=== PATIENT | female | born 1960 | race Caucasian/White ===

== ENCOUNTER → 2020-04-11 12:28 | Outpatient (CLI) | payer BC, SELFPAY ==
--- NOTE | 2020-04-11 12:29 | DI.MG.S_ITS ---
BILATERAL DIGITAL SCREENING MAMMOGRAM 3D/2D WITH CAD: 04/11/2020 CLINICAL: Routine screening. Family history of breast cancer. Comparison is made to exams dated: 09/22/2018 mammogram, 07/01/2017 mammogram, and 06/16/2016 mammogram - [facility]. The tissue of both breasts is heterogeneously dense. This may lower the sensitivity of mammography. Current study was also evaluated with a Computer Aided Detection (CAD) system. There is a 0.4 cm oval focal asymmetry in the left breast at 6 o'clock middle depth. This is more prominent. No other significant masses, calcifications, or other findings are seen in either breast. IMPRESSION: INCOMPLETE: NEEDS ADDITIONAL IMAGING EVALUATION The 0.4 cm oval focal asymmetry in the left breast resembles a cyst or a lymph node and is indeterminate. Additional views with possible ultrasound are recommended. This exam was interpreted at Station ID: [id number]. NOTE: For mammograms, a report in lay terms will be sent to the patient. Approximately 15% of breast malignancies will not be visualized mammographically. In the management of a palpable breast mass, a negative mammogram must not discourage biopsy of a clinically suspicious lesion. Electronically Signed By: Austen cabrera/mo:04/11/2020 17:12:33 letter sent: Additional Imaging Needed ACR BI-RADS Category 0: Incomplete [id number]
== END ==
PROVIDERS: PCP Registered Nurse Diabetes Educator; Referring Provider Registered Nurse Diabetes Educator; Visit Provider Registered Nurse Diabetes Educator
DX: Z12.31 Encounter for screening mammogram for malignant neoplasm of breast (principal); Z80.3 Family history of malignant neoplasm of breast; M81.0 Age-related osteoporosis without current pathological fracture; Z78.0 Asymptomatic menopausal state; Z82.62 Family history of osteoporosis
CPT/HCPCS: 77063; 77067; 77080

== ENCOUNTER → 2020-05-10 08:00 | Outpatient (CLI) | payer BC, SELFPAY ==
[2020-05-10 08:57] LABS: Add Manual Diff / Slide Review NO; Basophils Absolute Auto 0 /uL (0-100); Basophils Percent Auto 0.9 % (0-2); Eosinophils Absolute Auto 100 /uL (0-450); Eosinophils Percent Auto 1.6 % (2-4); Hematocrit 39.5 % (36-46); Hemoglobin 13.4 g/dL (12.0-16.0); Lymphocytes Absolute Auto 1600 /uL (1100-4500); Lymphocytes Percent Auto 30.6 % (25-40); Mean Corpuscular HGB Conc 33.8 % (30-36); Mean Corpuscular Volume 91.7 fL (80-100); Monocytes Absolute Auto 300 /uL (0-900); Monocytes Percent Auto 5.2 % (3-14); Neutrophils Absolute Auto 3200 /uL (1500-7000); Neutrophils Percent Auto 61.7 % (50-75); Platelet Count 238 X10^3/uL (150-400); Red Cell Distribution Width 12.7 % (11.6-14.8); White Blood Cell Count 5.1 X10^3/uL (4.5-11.0)
[2020-05-10 09:14] LABS: Alanine Aminotransferase 23 IU/L (<35); Albumin 4.5 g/dL (3.5-5.0); Albumin Globulin Ratio 1.3 (1.0-2.8); Alkaline Phosphatase 76 U/L (38-126); Aspartate Aminotransferase 29 IU/L (14-36); BUN Creatinine Ratio 19.2 (6-22); Bilirubin Total 0.7 mg/dL (0.2-1.3); Blood Urea Nitrogen 15 mg/dL (7-17); Calcium 9.4 mg/dL (8.4-10.2); Carbon Dioxide 28 mmol/L (22-32); Chloride 101 mmol/L (98-107); Cholesterol 165 mg/dL (140-199); Estimated Glomerular Filt Rate > 60.0 mL/min (>60); Globulin 3.6 g/dL (1.7-4.1); Glucose 97 mg/dL (80-110); HDL Cholesterol 38 mg/dL (40-60); HEMOLYSIS < 15 (0-50); LDL Cholesterol Calculated 109 mg/dL (<100); Potassium 4.4 mmol/L (3.4-5.1); Sodium 136 mmol/L (137-145); Total Protein 8.1 g/dL (6.3-8.2); Triglycerides 92 mg/dL (35-150)
[2020-05-10 09:46] LABS: TSH w/ Reflex to FT4 2.02 uIU/mL (0.47-4.68)
[2020-05-12 14:40] LABS: Vitamin D 25 Hydroxy (D3) 38.9 ng/mL (30.0-100.0)
[2020-05-12 23:07] LABS: QuantiFERON Mitogen Value >10.00 IU/mL (.); QuantiFERON Nil Value 0.06 IU/mL (.); QuantiFERON TB Gold Plus Negative (Negative); QuantiFERON TB1 Ag Value 0.08 IU/mL (.); QuantiFERON TB2 Ag Value 0.05 IU/mL (.)
== END ==
PROVIDERS: PCP Registered Nurse Diabetes Educator; Referring Provider Registered Nurse Diabetes Educator; Visit Provider Registered Nurse Diabetes Educator
DX: E04.2 Nontoxic multinodular goiter (principal); Z11.1 Encounter for screening for respiratory tuberculosis; Z13.0 Encounter for screening for diseases of the blood and blood-forming organs and certain disorders involving the immune mechanism; Z13.1 Encounter for screening for diabetes mellitus; Z13.220 Encounter for screening for lipoid disorders; M81.0 Age-related osteoporosis without current pathological fracture
CPT/HCPCS: 36415; 80053; 80061; 82306; 84443; 85025; 86480

== ENCOUNTER → 2020-05-12 12:45 | Outpatient (CLI) | payer BC, SELFPAY ==
--- NOTE | 2020-05-12 12:46 | DI.MG.S_ITS ---
UNILATERAL LEFT DIGITAL DIAGNOSTIC MAMMOGRAM 3D/2D WITH ADDITIONAL VIEWS: 05/12/2020 CLINICAL: Additional evaluation requested from prior study. Comparison is made to exams dated: 04/11/2020 mammogram - [facility], 09/22/2018 mammogram, 07/01/2017 mammogram, and 06/16/2016 mammogram - [facility]. The tissue of left breast is heterogeneously dense. This may lower the sensitivity of mammography. There is a 0.4 cm oval mass with a circumscribed margin in the left breast at 5 o'clock middle depth. This is seen in additional views. No other significant masses or calcifications are seen in the breast. IMPRESSION: INCOMPLETE: NEEDS ADDITIONAL IMAGING EVALUATION The 0.4 cm oval mass in the left breast is indeterminate. An ultrasound is recommended. This exam was interpreted at Station ID: [id number]. NOTE: For mammograms, a report in lay terms will be sent to the patient. Approximately 15% of breast malignancies will not be visualized mammographically. In the management of a palpable breast mass, a negative mammogram must not discourage biopsy of a clinically suspicious lesion. SUMMARY: Targeted ultrasound is recommended for further evaluation and will be scheduled immediately following this exam. Electronically Signed By: Aryan hawk/mo:05/12/2020 14:37:05 ACR BI-RADS Category 0: Incomplete [id number]
--- NOTE | 2020-05-12 12:46 | DI.US.S_ITS ---
LIMITED ULTRASOUND OF LEFT BREAST: 05/12/2020 CLINICAL: Patient returns today to evaluate a focal asymmetry in the left breast. Comparison is made to exams dated: 05/12/2020 mammogram, 04/11/2020 mammogram - [facility], 09/22/2018 mammogram, 06/16/2016 mammogram, and 07/01/2017 mammogram - [facility]. Color flow ultrasound of the left breast 5-6 o'clock region was performed. Barnes scale images of the real-time examination were reviewed. There is a benign 0.4 cm x 0.4 cm x 0.3 cm intramammary lymph node in the left breast at 5 o'clock anterior depth 4 cm from the nipple. This intramammary lymph node displays fatty hilum. IMPRESSION: BENIGN There is no sonographic evidence of malignancy. The 0.4 cm x 0.4 cm x 0.3 cm intramammary lymph node in the left breast is benign. A 1 year screening mammogram is recommended. This exam was interpreted at Station ID: [id number]. Electronically Signed By: Aryan hawk/mo:05/12/2020 14:38:52 letter sent: Normal Exam Ultrasound BI-RADS: 2 Benign
== END ==
PROVIDERS: PCP Registered Nurse Diabetes Educator; Referring Provider Registered Nurse Diabetes Educator; Visit Provider Registered Nurse Diabetes Educator
DX: R92.8 Other abnormal and inconclusive findings on diagnostic imaging of breast (principal)
CPT/HCPCS: 76642; 77065; G0279

== ENCOUNTER → 2020-12-30 16:30 | Outpatient (CLI) | payer BC, SELFPAY ==
--- NOTE | 2020-12-30 16:31 | DI.RAD.S_ITS ---
PROCEDURE: XR LUMBAR SPINE 2-3V INDICATIONS: eval treat focal pain and TTP at L4 x 4 months. No trauma. TECHNIQUE: 3 views of the lumbar spine were acquired. COMPARISON: None. FINDINGS: Bones: 5 [id number] vertebrae are present. There is trace retrolisthesis of L5 on S1. Severe disc space narrowing and moderate foraminal narrowing is present at L5-S1. Scattered non bridging anterior osteophytes are present throughout the lumbar spine. No vertebral body compression fractures. No suspicious bony lesions. Soft tissues: Overlying bowel gas pattern is normal. No suspicious soft tissue calcifications. IMPRESSION: Degenerative changes most notable at L5-S1. Dictated by: Michelle Ortiz M.D. on 12/30/2020 at 16:59 Approved by: Michelle Ortiz M.D. on 12/30/2020 at 16:59
== END ==
PROVIDERS: PCP Registered Nurse Diabetes Educator; Referring Provider Registered Nurse Diabetes Educator; Visit Provider Registered Nurse Diabetes Educator
DX: M51.37 Other intervertebral disc degeneration, lumbosacral region (principal)
CPT/HCPCS: 72100

== ENCOUNTER → 2021-01-08 18:30 | Outpatient (CLI) | payer BC, SELFPAY ==
--- NOTE | 2021-01-08 18:31 | DI.MRI.S_ITS ---
PROCEDURE: MR LUMBAR SPINE WO CON INDICATIONS: eval focal TTP/pain at L4 x 4 months, refractory TECHNIQUE: Noncontrast sagittal T1 spin echo and T2 fast echo, sagittal STIR, axial T1 and T2 fast spin echo through the lumbar spine. In cases with scoliosis, additional coronal T2 fast spin echo may be performed. COMPARISON: None. FINDINGS: Image quality: Excellent. Alignment and Curvature: There is normal bony alignment. Bone Marrow: Marrow is of normal overall signal. No acute vertebral body compression fractures. Spinal Cord: Conus medullaris terminates at the L1 level. Visualized cord demonstrates normal signal and size. Paraspinous Soft Tissues: No paravertebral masses. T12-L1: Normal appearance. L1-L2: Normal appearance. L2-L3: Normal appearance. L3-L4: Normal appearance. L4-L5: Mild disc height loss present with circumferential disc bulge. High-intensity zone posterior annulus reflects annular fissure or tear. Mild central stenosis present. Mild hypertrophic facet joints present without foraminal stenosis. L5-S1: Moderate disc height loss and endplate sclerosis present associated with circumferential disc bulge resulting in mild central stenosis and the face mint of the left lateral recess. Moderate bilateral foraminal stenosis present. IMPRESSION: Mild multilevel degenerative disc disease and arthropathy results in mild central and moderate bilateral foraminal stenosis at L5-S1 Dictated by: Damion Barragan M.D. on 01/09/2021 at 11:57 Approved by: Damion Barragan M.D. on 01/09/2021 at 12:04
== END ==
PROVIDERS: PCP Registered Nurse Diabetes Educator; Referring Provider Registered Nurse Diabetes Educator; Visit Provider Registered Nurse Diabetes Educator
DX: M54.5 Low back pain (principal); M51.36 Other intervertebral disc degeneration, lumbar region; M51.37 Other intervertebral disc degeneration, lumbosacral region; M47.816 Spondylosis without myelopathy or radiculopathy, lumbar region; M47.817 Spondylosis without myelopathy or radiculopathy, lumbosacral region; M48.061 Spinal stenosis, lumbar region without neurogenic claudication; M48.07 Spinal stenosis, lumbosacral region
CPT/HCPCS: 72148

== ENCOUNTER → 2021-06-27 08:03 | Outpatient (CLI) | payer BC, SELFPAY ==
[2021-06-27 09:22] LABS: Add Manual Diff / Slide Review NO; Basophils Absolute Auto 0 /uL (0-100); Basophils Percent Auto 0.7 % (0-2); Eosinophils Absolute Auto 100 /uL (0-450); Eosinophils Percent Auto 0.9 % (2-4); Hematocrit 38.8 % (36-46); Hemoglobin 13.4 g/dL (12.0-16.0); Lymphocytes Absolute Auto 1400 /uL (1100-4500); Lymphocytes Percent Auto 23.6 % (25-40); Mean Corpuscular HGB Conc 34.6 % (30-36); Mean Corpuscular Hemoglobin 31.5 PG (26-34); Monocytes Absolute Auto 300 /uL (0-900); Monocytes Percent Auto 5.6 % (3-14); Neutrophils Absolute Auto 4100 /uL (1500-7000); Neutrophils Percent Auto 69.2 % (50-75); Platelet Count 247 X10^3/uL (150-400); Red Blood Cell Count 4.26 X10^6/uL (4.0-5.2); Red Cell Distribution Width 12.6 % (11.6-14.8); White Blood Cell Count 5.9 X10^3/uL (4.5-11.0)
[2021-06-27 09:59] LABS: Alanine Aminotransferase 26 IU/L (<35); Albumin 4.5 g/dL (3.5-5.0); Albumin Globulin Ratio 1.4 (1.0-2.8); Alkaline Phosphatase 68 U/L (38-126); Aspartate Aminotransferase 30 IU/L (14-36); BUN Creatinine Ratio 13.6 (6-22); Bilirubin Total 1.1 mg/dL (0.2-1.3); Blood Urea Nitrogen 11 mg/dL (7-17); Calcium 9.7 mg/dL (8.4-10.2); Carbon Dioxide 26 mmol/L (22-32); Chloride 100 mmol/L (98-107); Cholesterol 204 mg/dL (140-199); Estimated Glomerular Filt Rate > 60.0 mL/min (>60); Globulin 3.3 g/dL (1.7-4.1); Glucose 99 mg/dL (80-110); HDL Cholesterol 45 mg/dL (40-60); HEMOLYSIS < 15 (0-50); LDL Cholesterol Calculated 142 mg/dL (<100); Potassium 4.6 mmol/L (3.4-5.1); Sodium 135 mmol/L (137-145); Total Protein 7.8 g/dL (6.3-8.2); Triglycerides 85 mg/dL (35-150)
[2021-06-27 10:28] LABS: TSH w/ Reflex to FT4 1.55 uIU/mL (0.47-4.68)
[2021-07-01 17:07] LABS: QuantiFERON Mitogen Value >10.00 IU/mL (.); QuantiFERON TB Gold Plus Negative (Negative); QuantiFERON TB1 Ag Value 0.01 IU/mL (.)
== END ==
PROVIDERS: PCP Family Medicine; Referring Provider Family Medicine; Visit Provider Family Medicine
DX: Z00.00 Encounter for general adult medical examination without abnormal findings (principal)
CPT/HCPCS: 36415; 80053; 80061; 84443; 85025; 86480

== ENCOUNTER → 2021-07-03 15:08 | Outpatient (CLI) | payer BC, SELFPAY ==
--- NOTE | 2021-07-03 15:09 | DI.MG.S_ITS ---
BILATERAL DIGITAL SCREENING MAMMOGRAM 3D/2D WITH CAD: 07/03/2021 CLINICAL: Routine screening. Family history of breast cancer. Comparison is made to exams dated: 05/12/2020 mammogram, 04/11/2020 mammogram - [facility], and 09/22/2018 mammogram - [facility]. The tissue of both breasts is heterogeneously dense. This may lower the sensitivity of mammography. Current study was also evaluated with a Computer Aided Detection (CAD) system. No significant masses, calcifications, or other findings are seen in either breast. There has been no significant interval change. IMPRESSION: NEGATIVE There is no mammographic evidence of malignancy. A 1 year screening mammogram is recommended. This exam was interpreted at Station ID: [id number]. NOTE: For mammograms, a report in lay terms will be sent to the patient. Approximately 15% of breast malignancies will not be visualized mammographically. In the management of a palpable breast mass, a negative mammogram must not discourage biopsy of a clinically suspicious lesion. Electronically Signed By: Austen cabrera/mo:07/03/2021 16:37:16 letter sent: Normal Exam ACR BI-RADS Category 1: Negative [id number]
== END ==
PROVIDERS: PCP Family Medicine; Referring Provider Family Medicine; Visit Provider Family Medicine
DX: Z12.31 Encounter for screening mammogram for malignant neoplasm of breast (principal); Z80.3 Family history of malignant neoplasm of breast
CPT/HCPCS: 77063; 77067

== ENCOUNTER → 2021-10-14 10:06 | Outpatient (CLI) | payer BC, SELFPAY ==
[2021-10-14 11:49] LABS: COVID19 -Nasal RAPID Negative (Negative)
== END ==
PROVIDERS: PCP Family Medicine; Visit Provider Nurse Practitioner Family
DX: Z20.822 Contact with and (suspected) exposure to COVID-19 (principal)
CPT/HCPCS: 87635; C9803

== ENCOUNTER 2021-10-16 13:06 | Day surgery (SDC) | payer BC, SELFPAY ==
[2021-10-16] VITALS (7 sets, daily range): BP systolic 99–115; BP diastolic 56–75; PULSE 40–66; RESP 11–18; TEMP 35.7–36.7; O2SAT 92–100; BMI 22.8
--- NOTE | 2021-10-16 12:25 | P.HP_ITS ---
History of Present Illness History of Present Illness Chief complaint: SCREENING COLONOSCOPY Narrative: 61 Years Old Female seen today for consideration of a screening colonoscopy. Has had 3 lifetime colonoscopies. Last coloonscopy in 2016, had a few polyps, 5 year recall. There have been no lower GI symptoms suggesting disease such as change in bowel habits, bleeding, abdominal pain or anemia. There's been no family history of colon cancer or colon polyps. Overall health issues have been stable, including no major cardiac events for at least 6 weeks. Past Medical History: Reactive airway disease: Multiple thyroid nodules: Osteoporosis: colon polyps Past Surgical History: Appendectomy Tonsillectomy ORIF's-Multiple Colonoscopy x 3 Family History: Reviewed history from 06/09/2021 and no changes required: Father: - A. Fib, Dementia, HTN, Heart disease Mother: BRCA, Heart Disease, Stroke, HTN, Hyperlipidemia, Osteoporosis Social History: Reviewed history from 06/09/2021 and no changes required: Marital Status: Children: none Occupation: [employer] Household Members: Spouse Education: [employer] Patient History Medical History Allergies Asthma Chicken pox Dyslipidemia Fractures Hearing loss Measles Multinodular thyroid Osteoporosis Otitis media, serous, TM rupture Family & Social History Social History: other hiking, kayaking, gardening Tobacco & Substance use: Smoking Status Never smoker alcohol intake current Meds Home Medications and Allergies Home Medications Medication Instructions Recorded Confirmed Type fluticasone propionate 50 1 spray NASAL DAILY 02/25/20 10/16/21 History mcg/actuation nasal spray,suspension hydrocortisone 2.5 % topical cream 1 applictn TN QD-BID PRN 02/25/20 10/16/21 History with perineal applicator (Proctosol HC) loratadine 10 mg tablet (Allergy 10 mg PO DAILY 02/25/20 10/16/21 History Relief (loratadine)) risedronate 150 mg tablet 150 mg PO QMONTH #3 tab 05/28/20 10/16/21 Rx Allergies Allergy/AdvReac Type Severity Reaction Status Date / Time No Known Drug Allergies Allergy Verified 10/16/21 13:22 Review of Systems Review of Systems Narrative: All remaining ROS were reviewed and negative except as addressed. Exam Narrative Exam Narrative: GENERAL: Alert and oriented, appearing stated age and in no acute distress. HEENT: Head normocephalic/atraumatic. Extraocular movements intact. LUNGS: Clear to ausculation bilaterally, no wheezes, rhonchi or rales. CV: Normal S1 and S2 with regular rate and rhythm, no audible murmurs, rubs or gallops. ABDOMEN: Soft, non-tender, non-distended, no organomegaly. Positive bowel sounds. EXTREMITIES: No clubbing, cyanosis, or edema. NEURO: Cranial nerves II through XII grossly intact, no focal deficits. PSYCH: Alert and oriented x 3. SKIN: No concerning lesions. Assessment & Plan Assessment & Plan narrative: 1. History of colon polyps 2. Screening for colon cancer Plan for colonoscopy. The nature and character of the procedure as well as anticipated results were discussed. The possibility of not completing the procedure was also discussed. Possible complications including aspiration pneumonia, bleeding, perforation and reaction to medications either for sedation or preparation and missed lesions were discussed. Questions were answered and proceeding to the colonoscopy was elected. Informed consent signed. I sincerely appreciate the referral allowing me to participate in this patient's care. Please contact me with any questions or concerns.
--- NOTE | 2021-10-16 12:27 | PM.OP.COLON ---
Operative Date/Time/Diagnoses Date of procedure: 10/16/21 Procedure Notes SCOAP/Timeout: 2:48 p.m. Procedure in detail: ENDOSCOPIST: Kelsie Leon MD Sedation RN: Reshma Montgomery RN Sedation start time: 2:49 p.m. Sedation end time: 3:09 p.m. PROCEDURE: Colonoscopy INDICATIONS: 1. History of colon polyps 2. Screening for colon cancer MEDICATION: Levsin 0.125 mg sublingual, incremental doses of Versed and fentanyl until appropriate level sedation achieved. ASA CLASS: 2 CECAL WITHDRAWAL TIME: 7 minutes COMPLICATIONS: None. EXTENT OF PROCEDURE: Cecum. QUALITY OF PREP: Good with portions of liquid stool. PROCEDURE: Prior to insertion of the colonoscope, a digital rectal examination was accomplished with circumferential palpation of the distal rectal mucosa without significant findings being noted. The high-definition colonoscope was passed into the rectum in the usual fashion and advanced over to the cecum without difficulty. The ileocecal valve, appendiceal stoma, and medial wall all could be inspected and no abnormalities were seen. ASCENDING COLON: As the colonoscope was withdrawn, care was taken to expose and inspect the haustral folds and no abnormalities were seen. HEPATIC FLEXURE: Normal, no polyps, diverticula or other abnormalities. TRANSVERSE COLON: Normal, no polyps, diverticula or other abnormalities. DESCENDING COLON: Normal, no polyps, diverticula or other abnormalities. SIGMOID COLON: Normal, no polyps, diverticula or other abnormalities. RECTUM: Normal. J maneuver was produced. There was no significant perianal disease. The J maneuver was broken. The remainder of the rectum was inspected and there was no external hemorrhoid disease. The scope was withdrawn. IMPRESSION: 1. Normal colonoscopy PLAN: 1. Repeat colonoscopy in 5 years. The possibility of a missed lesion including a malignancy has been discussed with the patient previously. Potential alarm symptoms have been discussed and should be reported immediately.
[2021-10-16] MEDS: HYOSCYAMINE 0.125 MG TABLET PO (13:40)
[2021-10-16] MEDS: LACTATED RINGERS 1,000 ML 200 ML IV (13:41)
[2021-10-16] MEDS: fentaNYL 250 MCG/5 ML INJ IV (15:09)
[2021-10-16] MEDS: MIDAZOLAM 5 MG/5 ML VIAL IV (15:10)
--- NOTE | 2021-10-16 15:24 | SUR.PHASEI ---
Dr. Leon here, speaking with patient, answering questions. informed of bradycardia, ranging in the 50s-60s OK'd discharge.
== END 2021-10-16 16:15 | disposition home or self-care (01) ==
PROVIDERS: PCP Family Medicine; Referring Provider Student in an Organized Health Care Education/Training Program; Visit Provider Student in an Organized Health Care Education/Training Program
PROC: 0DJD8ZZ Inspection of Lower Intestinal Tract, Via Natural or Artificial Opening Endoscopic (ICD-10-PCS; CPT 45378; principal; 2021-10-16 14:30)
DX: Z12.11 Encounter for screening for malignant neoplasm of colon (principal); Z86.010 Personal history of colon polyps
CPT/HCPCS: 45378; J2250; J3010

== ENCOUNTER → 2022-07-10 08:59 | Outpatient (CLI) | payer BC, SELFPAY ==
--- NOTE | 2022-07-10 09:00 | DI.MG.S_ITS ---
BILATERAL DIGITAL SCREENING MAMMOGRAM 3D/2D WITH CAD: 07/10/2022 CLINICAL: Routine screening. Family history of breast cancer. Comparison is made to exams dated: 07/03/2021 mammogram, 04/11/2020 mammogram - [facility], 09/22/2018 mammogram, and 07/01/2017 mammogram - [facility]. Both breasts are heterogeneously dense, which may obscure small masses (category c / 51-75% glandular tissue). Current study was also evaluated with a Computer Aided Detection (CAD) system. No significant masses, calcifications, or other findings are seen in either breast. There has been no significant interval change. IMPRESSION: NEGATIVE There is no mammographic evidence of malignancy. A 1 year screening mammogram is recommended. Based on Tyrer-Cuzick model (a risk assessment model), the patient's lifetime risk is 27.1% and her 10 year risk is 12.5%. If a patient has an elevated risk, a more comprehensive evaluation should be considered and/or a referral to a genetic counselor. The [place] [employer], [employer], and NCCN Guidelines advise the consideration of Breast MRI as an adjunct to screening mammography in patients whose Lifetime risk to develop breast cancer is 20% or higher. This exam was interpreted at Station ID: [id number]. NOTE: For mammograms, a report in lay terms will be sent to the patient. Approximately 15% of breast malignancies will not be visualized mammographically. In the management of a palpable breast mass, a negative mammogram must not discourage biopsy of a clinically suspicious lesion. Electronically Signed By: Chuck kaur/mo:07/12/2022 07:53:27 letter sent: Normal Exam ACR BI-RADS Category 1: Negative [id number]
== END ==
PROVIDERS: PCP Family Medicine; Referring Provider Family Medicine; Visit Provider Family Medicine
DX: Z12.31 Encounter for screening mammogram for malignant neoplasm of breast (principal); Z80.3 Family history of malignant neoplasm of breast
CPT/HCPCS: 77063; 77067

== ENCOUNTER → 2022-11-23 07:40 | Outpatient (CLI) | payer OTHER, SELFPAY ==
[2022-11-23 11:23] LABS: Alanine Aminotransferase 24 IU/L (<35); Albumin 4.6 g/dL (3.5-5.0); Albumin Globulin Ratio 1.5 (1.0-2.8); Alkaline Phosphatase 65 U/L (38-126); Aspartate Aminotransferase 29 IU/L (14-36); BUN Creatinine Ratio 13.8 (6-22); Bilirubin Total 1.2 mg/dL (0.2-1.3); Blood Urea Nitrogen 11 mg/dL (7-17); Carbon Dioxide 27 mmol/L (22-32); Chloride 97 mmol/L (98-107); Estimated Glomerular Filt Rate > 60 mL/min (>60); Globulin 3.1 g/dL (1.7-4.1); Glucose 89 mg/dL (80-110); HEMOLYSIS < 15 (0-50); Potassium 4.4 mmol/L (3.4-5.1); Sodium 135 mmol/L (137-145); Total Protein 7.7 g/dL (6.3-8.2)
[2022-11-23 12:04] LABS: TSH w/ Reflex to FT4 2.17 uIU/mL (0.47-4.68)
== END ==
PROVIDERS: PCP Internal Medicine; Referring Provider Internal Medicine; Visit Provider Internal Medicine
DX: M81.0 Age-related osteoporosis without current pathological fracture (principal); E78.5 Hyperlipidemia, unspecified; E04.1 Nontoxic single thyroid nodule
CPT/HCPCS: 36415; 80053; 84443

== ENCOUNTER → 2022-12-03 07:40 | Outpatient (CLI) | payer OTHER, SELFPAY ==
[2022-12-03 08:51] LABS: Cholesterol 138 mg/dL (140-199); HDL Cholesterol 42 mg/dL (40-60); LDL Cholesterol Calculated 79 mg/dL (<100); Triglycerides 85 mg/dL (35-150)
== END ==
PROVIDERS: PCP Internal Medicine; Referring Provider Internal Medicine; Visit Provider Internal Medicine
DX: M81.0 Age-related osteoporosis without current pathological fracture (principal); E78.5 Hyperlipidemia, unspecified; E04.1 Nontoxic single thyroid nodule
CPT/HCPCS: 36415; 80061

== ENCOUNTER → 2022-12-09 10:54 | Outpatient (CLI) | payer OTHER, SELFPAY ==
--- NOTE | 2022-12-09 | DI.US.S_ITS ---
PROCEDURE: US THYROID INDICATIONS: NONTOXIC SINGLE THYROID NODULE TECHNIQUE: Real-time scanning was performed of the thyroid gland, with image documentation. COMPARISON: None. FINDINGS: Right: Right thyroidectomy. Left: Thyroid lobe measures 5.0 x 1.5 x 1.0 cm, and is homogenous in echotexture. Sub cm colloid cysts and sub 5 mm left thyroid nodules Isthmus: 1.8 mm thick. IMPRESSION: 1. Prior right thyroidectomy. 2. Sub cm left colloid cyst and sub 5 mm too small left thyroid nodules. Given the small size, no additional follow-up is warranted. ACR TI-RADS definitions and recommendations: TI-RADS 1 (benign): 0 points. FNA not needed. TI-RADS 2 (not suspicious): 2 points. FNA not needed. TI-RADS 3 (mildly suspicious): 3 points. * FNA if 2.5 cm or larger, follow up if 1.5 cm or larger (at 1, 3, and 5 years). TI-RADS 4 (moderately suspicious): 4-6 points. * FNA if 1.5 cm or larger, follow up if 1 cm or larger (at 1, 2, 3, and 5 years). TI-RADS 5 (highly suspicious): 7 points or more. * FNA if 1 cm or larger, follow up if 0.5 cm or larger (every year for 5 years). Dictated by: Ronn Lu Salome Interpreted: Aryan Caballero MD on 12/09/2022 at 12:06 Transcribed by: AMBER on 12/09/2022 at 12:11 Approved by: Aryan Caballero M.D. on 12/09/2022 at 18:33
--- NOTE | 2022-12-09 | DI.RAD.S_ITS ---
Bone Density Report Name: CONCHITA CURRY Age: 62 Sex: Female Ethnicity: White Date of : 1960 Indication: postmenopausal osteoporosis; monitoring treatment; Referring Provider: JAIMIE CALLES Study: Bone densitometry was performed. Exam Date: December 09, 2022 Accession number: [id number] Bone Density: Region BMD T-score Z-score Classification AP Spine(L1-L4) 0.742 -2.8 -1.2 Osteoporosis Femoral Neck (Left) 0.584 -2.4 -1.0 Osteopenia Total Hip (Left) 0.758 -1.5 -0.4 Osteopenia Femoral Neck (Right) 0.650 -1.8 -0.4 Osteopenia Total Hip (Right) 0.763 -1.5 -0.4 Osteopenia Total Hip Mean 0.760 -1.5 -0.4 Osteopenia World Health Organization criteria for BMD impression classify patients as: Normal (T-score at or above -1.0), Osteopenia (T-score between -1.0 and -2.5), or Osteoporosis (T-score at or below -2.5). 10-year Fracture Risk: FRAX not reported because: Some T-score for Spine Total or Hip Total or Femoral Neck at or below -2.5 Treated for osteoporosis Previous Exams: -- Region Exam Age BMD T-score BMD Change BMD Change Date g/cm2 vs Baseline vs Previous -- AP Spine (L1-L4) 12/09/2022 62 0.742 -2.8 -0.011 (-1.4%)# -0.011 (-1.4%)# 04/11/2020 60 0.753 -2.7 Total Hip(Left) 12/09/2022 62 0.758 -1.5 0.036 (5.0%)# 0.036 (5.0%)# 04/11/2020 60 0.722 -1.8 Total Hip(Right) 12/09/2022 62 0.763 -1.5 0.012 (1.6%)# 0.012 (1.6%)# 04/11/2020 60 0.751 -1.6 -- *Denotes significance at 95% confidence level, LSC for AP Spine = 0.022 g/cm2, LSC for Total Hip = 0.027 g/cm2 # Denotes dissimilar scan types or analysis methods Impression: The patient has osteoporosis, based on the Total Spine T-score. No significant bone loss was observed. Discussion: PATIENT UNDER TREATMENT WITH NO SIGNIFICANT BMD LOSS SINCE LAST EXAM. In an untreated patient, BMD typically declines with age. A lack of decline or gain is usually a sign that treatment is efficacious and fracture risk is reduced. It is important to ask patients whether they are taking their medications and to encourage continued and appropriate compliance with their osteoporosis therapies to reduce fracture risk. It is also important to review their risk factors and encourage appropriate calcium and vitamin D intakes, exercise, fall prevention and other lifestyle measures. Follow-Up: Consider a repeat BMD and Vertebral Fracture Assessment (VFA) exam in 2 years or sooner if medically necessary, to reassess this patient's status. Reported by: CHRISTAL SCHWAB M.D. on 12/09/2022 11:50:00 AM.
== END ==
PROVIDERS: PCP Internal Medicine; Referring Provider Internal Medicine; Visit Provider Internal Medicine
DX: E04.1 Nontoxic single thyroid nodule (principal); M81.0 Age-related osteoporosis without current pathological fracture
CPT/HCPCS: 76536; 77080

== ENCOUNTER 2023-06-24 16:16 | Emergency (ER) | payer OTHER, SELFPAY ==
[2023-06-24 16:20] VITALS: BP 185/87; PULSE 80; RESP 18; TEMP 36.5; O2SAT 100; BMI 22.8
--- NOTE | 2023-06-24 17:08 | ED_ITS ---
HPI - Nausea/Vomiting/Diarrhea General Chief complaint: Nausea/Vomiting/Diarrhea Stated complaint: VERTIGO Time Seen by Provider: 06/24/23 17:07 Source: patient and other Mode of arrival: Wheelchair History of Present Illness HPI Narrative: 63-year-old female. Has a history of vertigo in the past. Was at her normal state of health. Was driving. She went through a round about and had a fairly sudden onset of vertigo. No headache. No ringing in her ears. Symptoms are worse when she opens her eyes and when this happens she does become very nauseous as well. No chest pain. No numbness or tingling in her upper and lower extremities. No headache. Related Data Home Medications Medication Instructions Recorded Confirmed fluticasone propionate 50 1 spray intranasal DAILY 02/25/20 10/16/21 mcg/actuation nasal spray,suspension hydrocortisone 2.5 % topical cream 1 applictn WA QD-BID PRN Allergic 02/25/20 10/16/21 with perineal applicator Symptoms (Proctosol HC) loratadine 10 mg tablet (Allergy 10 mg PO DAILY 02/25/20 10/16/21 Relief (loratadine)) Previous Rx's Medication Instructions Recorded risedronate 150 mg tablet 150 mg PO QMONTH #3 tabs 05/28/20 meclizine 25 mg tablet 25 mg PO BID PRN dizziness #10 tabs 06/24/23 ondansetron 4 mg disintegrating 4 mg PO Q6H PRN nausea and 06/24/23 tablet vomiting #10 tabs prednisone 20 mg tablet 20 mg PO DAILY 5 days #5 tabs 06/24/23 Allergies Allergy/AdvReac Type Severity Reaction Status Date / Time No Known Drug Allergies Allergy Verified 06/24/23 16:20 Review of Systems Constitutional Constitutional: Reports system reviewed and no additional complaints, except as documented Eyes Eyes: Reports system reviewed and no additional complaints, except as documented Cardiovascular Cardiovascular: Reports system reviewed and no additional complaints, except as documented Respiratory Respiratory: Reports system reviewed and no additional complaints, except as documented Integumentary/Breasts Skin/Breast: Reports system reviewed and no additional complaints, except as documented Neurologic Neurologic: Reports system reviewed and no additional complaints, except as documented Patient History Medical History Dyslipidemia Asthma Allergies Fractures Measles Chicken pox Otitis media, serous, TM rupture Hearing loss Osteoporosis Multinodular thyroid Social History marital status: household members: spouse education level: other occupational status: employed [employer]: [employer] travel history: other leisure activities: other other: hiking, kayaking, gardening seatbelt use: always helmet use: Yes water heater temp set < 120 deg: Yes working smoke detector in home: Yes fire extinguisher in home: Yes carbon monox detector in home: Yes firearms in home: No do you feel safe at home: Yes Smoking Status: Never smoker second hand exposure: No alcohol intake: current substance use type: does not use additional social history: 02/25/2020: 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 She is uncertain whether she will be doing any work as a nurse practitioner locally. She was living in [facility] and she and her had purchased a home here in [place] to which they intended to move in a couple of years; however due to the COVID-19 [place] they ended up deciding to move here now. Smoking Status: Never smoker alcohol intake frequency: a few times a week Substance Use Type: does not use Exam Initial Vital Signs Initial Vital Signs: Vital Signs Temperature 97.7 F 06/24/23 16:20 Pulse Rate 80 06/24/23 16:20 Respiratory Rate 18 06/24/23 16:20 Blood Pressure 185/87 H 06/24/23 16:20 Pulse Oximetry 100 06/24/23 16:20 Oxygen Delivery Method Room Air 06/24/23 16:20 Const General: cooperative and No ill appearing Resp Effort & Inspection: normal respiratory effort Cardio Rate: regular rate Skin General: no rashes or lesions noted Neuro General: patient alert, patient awake, patient oriented x3 and moves all extremities Cognition: normal cognition Speech: speech normal Course Orders Ordered: Discontinued Medications Meclizine HCl (Meclizine Hcl 12.5 Mg Tablet) 25 mg PO NOW ONE Stop: 06/24/23 17:08 Last Admin: 06/24/23 17:13 Dose: 25 mg Documented By: [facility] Vital Signs Vital signs: Vital Signs - 8 hr 06/24/23 16:20 Temperature 97.7 F Pulse Rate 80 Respiratory Rate 18 Blood Pressure 185/87 H Pulse Oximetry 100 Oxygen Delivery Method Room Air MDM - Nausea/Vomiting/Diarrhea MDM Narrative Medical decision making narrative: After meclizine patient states that her symptoms have almost completely resolved. I do suspect that this is peripheral vertigo. She is no other neurologic symptoms. Will hold on any radiologic studies for now. Discussed that she may want to follow-up with ENT. The last time that she had this episode they put her on steroids so she would like to be on steroids for the next couple days. Was sent home with meclizine and return precautions. She expressed understanding and agreement. Discharge Plan Departure Patient Disposition: Home Clinical Impression: Vertigo Instructions: DI for Vertigo Activity Restrictions/Additional Instructions: Take the prednisone as directed. The meclizine and Zofran are as needed. You can consider following up with ear nose and throat. Contact your primary doctor for follow-up. Return to the emergency department for new or worsening symptoms. Prescriptions: New ondansetron 4 mg tablet,disintegrating 4 mg PO Q6H PRN (Reason: nausea and vomiting) Qty: 10 0RF prednisone 20 mg tablet 20 mg PO DAILY 5 Days Qty: 5 0RF meclizine 25 mg tablet 25 mg PO BID PRN (Reason: dizziness) Qty: 10 0RF No Action fluticasone propionate 50 mcg/actuation spray,suspension 1 spray NASAL DAILY Rx Instructions: administer into each nostril loratadine [Allergy Relief (loratadine)] 10 mg tablet 10 mg PO DAILY hydrocortisone [Proctosol HC] 2.5 % cream with perineal applicator 1 applictn WA QD-BID PRN (Reason: Allergic Symptoms) risedronate 150 mg tablet 150 mg PO QMONTH Qty: 3 3RF Rx Instructions: administer at least 30 minutes before the first food or drink of the day other than water. Referrals: Sy Corral MD [Primary Care Provider] - Stand Alone Forms: Patient Portal/API
[2023-06-24] MEDS: MECLIZINE HCL 12.5 MG TABLET 25 MG PO (17:13)
--- NOTE | 2023-06-24 18:07 | PC.NURSE ---
patient had intense nausea and almost diarrhea. Couldn't turn her head without feeling sick
--- NOTE | 2023-06-24 18:13 | PC.NURSE ---
patient had this same episode in the past and was prescribed zofran and predisone and stated that it worked and requested the same medication plus meclazine this time. She was told that the provider would be made aware.
[2023-06-24 18:47] VITALS: BP 136/78; PULSE 59; RESP 14; O2SAT 100
== END 2023-06-24 18:49 | disposition home or self-care (01) ==
PROVIDERS: Emergency Provider Emergency Medicine; PCP Internal Medicine
DX: R42 Dizziness and giddiness (principal)
CPT/HCPCS: 99283

== ENCOUNTER → 2023-07-12 11:03 | Outpatient (CLI) | payer OTHER, SELFPAY ==
--- NOTE | 2023-07-12 11:03 | DI.MG.S_ITS ---
BILATERAL DIGITAL SCREENING MAMMOGRAM 3D/2D WITH CAD: 07/12/2023 CLINICAL: Routine screening. Family history of breast cancer. Comparison is made to exams dated: 07/10/2022 mammogram, 07/03/2021 mammogram, and 05/12/2020 [facility]. Both breasts are heterogeneously dense, which may obscure small masses (category c / 51-75% glandular tissue). Current study was also evaluated with a Computer Aided Detection (CAD) system. No significant masses, calcifications, or other findings are seen in either breast. There has been no significant interval change. IMPRESSION: NEGATIVE There is no mammographic evidence of malignancy. A 1 year screening mammogram is recommended. Based on Tyrer-Cuzick model (a risk assessment model), the patient's lifetime risk is 26.4% and her 10 year risk is 12.5%. If a patient has an elevated risk, a more comprehensive evaluation should be considered and/or a referral to a genetic counselor. The [place] [employer], [place] [employer], and NCCN Guidelines advise the consideration of Breast MRI as an adjunct to screening mammography in patients whose Lifetime risk to develop breast cancer is 20% or higher. This exam was interpreted at Station ID: [id number]. NOTE: For mammograms, a report in lay terms will be sent to the patient. Approximately 15% of breast malignancies will not be visualized mammographically. In the management of a palpable breast mass, a negative mammogram must not discourage biopsy of a clinically suspicious lesion. Electronically Signed By: Maria Victoria pierre/mo:07/12/2023 14:41:16 letter sent: Normal Exam ACR BI-RADS Category 1: Negative [id number]
== END ==
PROVIDERS: PCP Internal Medicine; Referring Provider Internal Medicine; Visit Provider Internal Medicine
DX: Z12.31 Encounter for screening mammogram for malignant neoplasm of breast (principal); Z80.3 Family history of malignant neoplasm of breast
CPT/HCPCS: 77063; 77067

== ENCOUNTER → 2024-07-13 08:29 | Outpatient (CLI) | payer OTHER, SELFPAY ==
--- NOTE | 2024-07-13 08:33 | DI.MG.S_ITS ---
BILATERAL DIGITAL SCREENING MAMMOGRAM 3D/2D WITH CAD: 07/13/2024 CLINICAL: Routine screening. Family history of breast cancer. Comparison is made to exams dated: 07/12/2023 mammogram, 07/10/2022 mammogram, and 07/03/2021 mammogram - [facility]. The breasts are heterogeneously dense, which may obscure small masses (category c / 51-75% glandular tissue). Current study was also evaluated with a Computer Aided Detection (CAD) system. No significant masses, calcifications, or other findings are seen in either breast. There has been no significant interval change. IMPRESSION: NEGATIVE There is no mammographic evidence of malignancy. A 1 year screening mammogram is recommended. Based on Tyrer-Cuzick model (a risk assessment model), the patient's lifetime risk is 25.6% and her 10 year risk is 12.5%. If a patient has an elevated risk, a more comprehensive evaluation should be considered and/or a referral to a genetic counselor. The [place] [employer], [employer] [employer], and NCCN Guidelines advise the consideration of Breast MRI as an adjunct to screening mammography in patients whose Lifetime risk to develop breast cancer is 20% or higher. This exam was interpreted at Station ID: [id number]. NOTE: For mammograms, a report in lay terms will be sent to the patient. Approximately 15% of breast malignancies will not be visualized mammographically. In the management of a palpable breast mass, a negative mammogram must not discourage biopsy of a clinically suspicious lesion. Electronically Signed By: Austen cabrera/mo:07/14/2024 08:57:20 letter sent: Normal Exam ACR BI-RADS Category 1: Negative
== END ==
PROVIDERS: PCP Registered Nurse; Referring Provider Registered Nurse; Visit Provider Registered Nurse
DX: Z12.31 Encounter for screening mammogram for malignant neoplasm of breast (principal); Z80.3 Family history of malignant neoplasm of breast; R92.333 Mammographic heterogeneous density, bilateral breasts
CPT/HCPCS: 77063; 77067

== ENCOUNTER → 2024-07-19 15:15 | Outpatient (CLI) | payer OTHER, SELFPAY ==
--- NOTE | 2024-07-19 15:20 | DI.US.S_ITS ---
PROCEDURE: US THYROID INDICATIONS: MULTIPLE THYROID NODULES TECHNIQUE: Real-time scanning was performed of the thyroid gland, with image documentation. COMPARISON: [facility], US, US THYROID, 12/09/2022, 11:12. FINDINGS: Thyroid: The right thyroid lobe is surgically absent. The left thyroid lobe measures 4.2 x 1.4 x 1.3 cm. The isthmus is 0.2 cm. No suspicious soft tissue in the right thyroid fossa. The left thyroid lobe is well-defined, slightly heterogeneous due to a few tiny colloid cysts, and one hypodense solid nodule in the lower medial aspect measuring up to 0.6 cm, not significantly changed compared to prior. There are benign-appearing lateral compartment left neck lymph nodes. No right-sided lymph nodes were seen. IMPRESSION: Prior right thyroidectomy without suspicious tissue in the right thyroid fossa. Tiny cysts and nodules in the left thyroid lobe, too small for warranting follow-up. ACR TI-RADS definitions and recommendations: TI-RADS 1 (benign): 0 points. FNA not needed. TI-RADS 2 (not suspicious): 2 points. FNA not needed. TI-RADS 3: 3 points. * FNA if 2.5 cm or larger, follow up if 1.5 cm or larger (at 1, 3, and 5 years). TI-RADS 4: 4-6 points. * FNA if 1.5 cm or larger, follow up if 1 cm or larger (at 1, 2, 3, and 5 years). TI-RADS 5: 7 points or more. * FNA if 1 cm or larger, follow up if 0.5 cm or larger (every year for 5 years). Dictated by: Maria Victoria Zuleta M.D. on 07/20/2024 at 9:47 Approved by: Maria Victoria Zuleta M.D. on 07/20/2024 at 9:55
[2024-07-19 17:49] LABS: Vitamin D 25 Hydroxy (D3) 53.1 ng/mL (30.0-100.0)
== END ==
PROVIDERS: PCP Registered Nurse; Referring Provider Registered Nurse; Visit Provider Registered Nurse
DX: E04.2 Nontoxic multinodular goiter (principal)
CPT/HCPCS: 36415; 76536; 82306

== ENCOUNTER → 2024-09-26 14:01 | Outpatient (CLI) | payer OTHER, SELFPAY ==
--- NOTE | 2024-09-26 14:03 | DI.RAD.S_ITS ---
PROCEDURE: XR DEXA AXIAL SKELETON INDICATIONS: AGE RELATED OSTEOPOROSIS COMPARISON: [facility], CR, XR DEXA AXIAL SKELETON, 12/09/2022, 11:42. FINDINGS: Lumbar Spine: Bone mineral density 0.751 (previously 0.742) g/cm2, T score -2.7 (previously-2.8). Left Femoral Neck: Bone mineral density 0.606 (previously 0.584) g/cm2, T score -2.2 (previously-2.4) Left Hip: Bone mineral density 0.725 (previously 0.758) g/cm2, T score -1.8 (previously-1.5). Fracture Risk Calculation (when applicable): 10-year fracture risk of a major osteoporotic fracture 19 percent and of a hip fracture 1.8 percent. (T score greater or equal to -1.0 to: NORMAL) (T score from -1.1 to -2.4: OSTEOPENIA) (T score less than or equal to -2.5: OSTEOPOROSIS) IMPRESSION: Osteoporosis---recommend repeat DEXA in 2 years or less for reassessment of response to treatment. Follow-up guidelines as follows: Osteoporosis: Consider a repeat DEXA and Vertebral Fracture Assessment (VFA) exam in 2 years or sooner if medically necessary, to reassess this patient's status. Osteopenia: Consider a repeat DEXA in 2-3 years to reassess this patient's status, or if there is a new clinical indication. Normal: Consider a repeat DEXA in 5 years or sooner, or if there is a new clinical indication. All treatment decisions require clinical judgment and consideration of individual patient factors, including patient preferences, comorbidities, previous drug use, risk factors not captured in the FRAX model (e.g., frailty, falls, vitamin D deficiency, increased bone turnover, interval significant decline in bone density ) and possible under- or over-estimation of fracture risk by FRAX. In addition, the NOF Guide recommends that FDA-approved medical therapies be considered in postmenopausal women and men age >= 50 years with a: * Hip or vertebral (clinical or morphometric) fracture * T-score of <=-2.5 at the spine or hip * Ten-year fracture probability by FRAX of >= 3% for hip fracture or >=20% for major osteoporotic fracture. Dictated by: Gerardo Morales M.D. on 09/27/2024 at 3:24 Approved by: Gerardo Morales M.D. on 09/27/2024 at 3:26
== END ==
PROVIDERS: PCP Registered Nurse; Referring Provider Registered Nurse; Visit Provider Registered Nurse
DX: M81.0 Age-related osteoporosis without current pathological fracture (principal)
CPT/HCPCS: 77080

== ENCOUNTER → 2025-01-15 08:43 | Outpatient (CLI) | payer OTHER, SELFPAY ==
--- NOTE | 2025-01-15 08:46 | DI.MRI.S_ITS ---
MR breast BI wo con: 01/15/2025. BI-RADS: 0 CLINICAL: 64-year old female for bilateral diagnostic breast MRI. Current reported family history of breast cancer: mother. PRIOR EXAMS 07/13/2024, 07/12/2023, 07/10/2022, 07/03/2021, 05/12/2020, 04/11/2020. MRI TECHNIQUE Bilateral breast MRI was performed on a 1.5 Kari magnet using a dedicated breast coil with mild compression. Axial T1 and T2 STIR sequences were obtained. Dynamic contrast enhanced VIBRANT fat-suppressed sequences were obtained. Delayed sagittal high resolution or sagittal reconstructed isotropic sequence was also obtained. Subtraction images and maximum intensity projection images were obtained. The study was evaluated using Array Storm software. Contrast was injected intravenously: 20cc Prohance. FIBROGLANDULAR TISSUE Bilateral: C. Heterogeneous fibroglandular tissue. BACKGROUND PARENCHYMAL ENHANCEMENT Bilateral: Minimal symmetrical background parenchymal enhancement. BREAST FINDINGS Right: Upper Outer at 10:00, Middle depth, measuring 0.7 x 0.5 x 0.5cm: There is an oval, circumscribed enhancing mass. Reference image 06/23, . Bilateral: Multiple intramammary bilateral presumed lymph nodes are seen favored to be benign due to stability on mammogram. IMPRESSION: Right (Mass): Upper Outer at 10:00, Middle depth, measuring 0.7 x 0.5 x 0.5cm * Incomplete - Needs additional imaging evaluation. Left * No evidence of malignancy with benign findings. RECOMMENDATIONS Right: Upper Outer at 10:00, Middle depth * Further evaluation with diagnostic ultrasound. OVERALL ASSESSMENT CATEGORY BI-RADS-0: Incomplete - Need Additional Imaging Evaluation. ELECTRONICALLY SIGNED: Fermin Mullins M.D. on 01/15/2025 at 01:32:13 PM PT Interpreting Station ID: [id number]
== END ==
LOC: MRI 08:44
PROVIDERS: PCP Registered Nurse; Referring Provider Registered Nurse; Visit Provider Registered Nurse
DX: R92.8 Other abnormal and inconclusive findings on diagnostic imaging of breast (principal); N63.11 Unspecified lump in the right breast, upper outer quadrant; R92.333 Mammographic heterogeneous density, bilateral breasts; Z91.89 Other specified personal risk factors, not elsewhere classified; Z80.3 Family history of malignant neoplasm of breast
CPT/HCPCS: 77047; A9579

== ENCOUNTER → 2025-01-23 10:55 | Outpatient (CLI) | payer MEDICARE, OTHER, SELFPAY ==
--- NOTE | 2025-01-23 11:04 | DI.US.S_ITS ---
US breast RT limited: 01/23/2025. BI-RADS: 3 CLINICAL: 64-year old female for right diagnostic breast ultrasound that is a follow-up to diagnostic breast MRI on 01/15/2025. Tyrer-Cuzick lifetime risk of 15.7%. Current reported family history of breast cancer: mother. PRIOR EXAMS Breast MRI(s): 01/15/2025. Seven Other Exams on 07/13/2024, 07/12/2023, 07/10/2022, 07/03/2021, 05/12/2020, 04/11/2020. ULTRASOUND TECHNIQUE Real-time goldman scale and color doppler imaging of the area of clinical interest was performed with image documentation. Right targeted breast ultrasound of the area of clinical interest and the axilla was performed with image documentation. ULTRASOUND FINDINGS Right: Upper Outer at 10:00, 3.5 cm from nipple, measuring 0.9 x 0.3 x 0.7 cm: This oval, hypoechoic mass correlates with MRI evaluation which likely represents a fibroadenoma versus a lymph node. IMPRESSION: Right: Upper Outer at 10:00, 3.5 cm from nipple, measuring 0.9 x 0.3 x 0.7 cm * Probably Benign. RECOMMENDATIONS Right: Upper Outer at 10:00, 3.5 cm from nipple * Six month followup with diagnostic ultrasound (Patient will also be due for bilateral mammogram at that time.). COMMENTS: Findings and recommendations were conveyed to the patient during today's evaluation. OVERALL ASSESSMENT CATEGORY BI-RADS-3: Probably Benign. ELECTRONICALLY SIGNED: Austen Rahman M.D. on 01/23/2025 at 12:07:48 PM PT Interpreting Station ID: [id number]
== END ==
PROVIDERS: PCP Registered Nurse; Referring Provider Registered Nurse; Visit Provider Registered Nurse
DX: R92.8 Other abnormal and inconclusive findings on diagnostic imaging of breast (principal); N63.11 Unspecified lump in the right breast, upper outer quadrant; Z80.3 Family history of malignant neoplasm of breast
CPT/HCPCS: 76642

== ENCOUNTER → 2025-07-23 07:30 | Outpatient (CLI) | payer MEDICARE, OTHER, SELFPAY ==
[2025-07-23 08:33] LABS: Influenza A - CEPHEID Flu A NEGATIVE (NEGATIVE); Influenza B - CEPHEID Flu B NEGATIVE (NEGATIVE)
[2025-07-23 08:34] LABS: COVID-19 CEPHEID 4-PLEX PCR POSITIVE (Negative)
== END ==
PROVIDERS: PCP Registered Nurse; Referring Provider Nurse Practitioner Family; Visit Provider Nurse Practitioner Family
DX: R05.1 Acute cough (principal)
CPT/HCPCS: 87637